=== PATIENT | male | born 1955 | race American Indian/Alaskan Native ===

== ENCOUNTER 2017-05-31 20:12 | Emergency (ER) | payer BC, MEDICAID ==
[2017-05-31] MEDS ORDERED: TYLENOL PO ONE (22:13)
[2017-06-01] MEDS ORDERED: NACL 0.9% 1000 ML 1,000 ML IV ONE (08:43)
[2017-06-01] MEDS ORDERED: DILAUDID IV ONE (08:47)
--- NOTE | 2017-06-01 08:48 | Emergency Department Report ---
Abscess Boil HPI - HPI Chief Complaint: Wound/Laceration Stated Complaint: BOIL Time Seen by Provider: 06/01/17 08:34 Duration: >1 Week Location: Perianal Severity: Moderate History: Yes Fever, Yes Pain, No Purulent Drainage, No Numbness, No Foreign Body , No Previous History, No Insect Bite HPI: Patient is a 61-year-old male with a history of PVCs and blood pressure which is controlled with medication presents to ED with left buttock abscess 1 week. Patient states that he thought it was a ball on his buttock. Patient states that it has gotten bigger and very painful. Patient states she's become uncomfortable to sit down and he is unable to sit down due to the pain and size of the well on his buttock. She states she's been taking his medications regularly. Home Medications: Home Medications Medication Instructions Recorded Confirmed Last Taken Insulin Glargine,Hum.rec.anlog 40 unit SQ HS 02/05/13 12/05/14 2 Days Ago [Lantus Solostar] ~12/03/14 40 Tacrolimus [Prograf] 4 mg PO Q12H 02/05/13 12/05/14 1 Day Ago ~12/04/14 4 predniSONE [Deltasone] 5 mg PO QDAY 02/05/13 12/05/14 Unknown AtorvaSTATin [Lipitor] 40 mg PO QDAY 12/05/14 12/05/14 2 Days Ago ~12/03/14 40 Insulin Aspart [NovoLOG Flexpen] See Protocol SQ ACHS 12/05/14 12/05/14 1 Day Ago ~12/04/14 Mycophenolate [Cellcept] 250 mg PO BID 12/05/14 12/05/14 1 Day Ago ~12/04/14 250 Previous Rx's Medication Instructions Recorded Last Taken Type amLODIPine [Norvasc] 10 mg PO DAILY #30 tab 02/05/13 1 Day Ago Rx ~12/04/14 10 HYDROcodone/APAP 5-325 [[place] 1 each PO Q6HR PRN #20 tablet 06/01/17 Unknown Rx 5-325 mg TAB] Ibuprofen [Motrin] 600 mg PO Q8H PRN #30 tablet 06/01/17 Unknown Rx Sulfamethoxazole/Trimethoprim 1 each PO BID #20 tablet 06/01/17 Unknown Rx [Bactrim DS TAB] Allergies/Adverse Reactions: Allergies Allergy/AdvReac Type Severity Reaction Status Date / Time No Known Allergies Allergy Verified 02/05/13 07:50 ED Review of Systems ROS: Stated complaint: BOIL Other details as noted in HPI Constitutional: denies: chills, fever Eyes: denies: eye pain, eye discharge, vision change ENT: denies: ear pain, throat pain Respiratory: denies: cough, shortness of breath, wheezing Cardiovascular: denies: chest pain, palpitations Endocrine: no symptoms reported Gastrointestinal: denies: abdominal pain, nausea, diarrhea Genitourinary: other (buttock boil, pain). denies: urgency, dysuria, frequency , hematuria, testicular pain, testicular mass Musculoskeletal: denies: back pain, joint swelling, arthralgia Skin: denies: rash, lesions Neurological: denies: headache, weakness, paresthesias Psychiatric: denies: anxiety, depression Hematological/Lymphatic: denies: easy bleeding, easy bruising ED Past Medical Hx - Past Medical History Hx Hypertension: Yes Hx Congestive Heart Failure: No Hx Diabetes: Yes Hx Asthma: Yes Hx COPD: No Hx HIV: No Additional medical history: liver transplant in 2010 - Surgical History Hx Open Heart Surgery: No Hx Cholecystectomy: No Hx Appendectomy: No Hx Breast Surgery: No Additional Surgical History: liver transplant 2010 - Social History Smoking Status: Never Smoker Substance Use Type: None - Medications Home Medications: Home Medications Medication Instructions Recorded Confirmed Last Taken Type Insulin Glargine,Hum.rec.anlog 40 unit SQ HS 02/05/13 12/05/14 2 Days Ago History [Lantus Solostar] ~12/03/14 40 Tacrolimus [Prograf] 4 mg PO Q12H 02/05/13 12/05/14 1 Day Ago History ~12/04/14 4 amLODIPine [Norvasc] 10 mg PO DAILY #30 tab 02/05/13 12/05/14 1 Day Ago Rx ~12/04/14 10 predniSONE [Deltasone] 5 mg PO QDAY 02/05/13 12/05/14 Unknown History AtorvaSTATin [Lipitor] 40 mg PO QDAY 12/05/14 12/05/14 2 Days Ago History ~12/03/14 40 Insulin Aspart [NovoLOG Flexpen] See Protocol SQ ACHS 12/05/14 12/05/14 1 Day Ago History ~12/04/14 Mycophenolate [Cellcept] 250 mg PO BID 12/05/14 12/05/14 1 Day Ago History ~12/04/14 250 HYDROcodone/APAP 5-325 [[place] 1 each PO Q6HR PRN #20 tablet 06/01/17 Unknown Rx 5-325 mg TAB] Ibuprofen [Motrin] 600 mg PO Q8H PRN #30 tablet 06/01/17 Unknown Rx Sulfamethoxazole/Trimethoprim 1 each PO BID #20 tablet 06/01/17 Unknown Rx [Bactrim DS TAB] ED Abscess Boil Physical Exam - Exam General: Vital signs noted. No distress. Alert and acting appropriately. I & D Note - I & D Note I & D Note: Patient positioned appropriately, 15cc lidocaine with epinephrine was used as a local anesthetic. #11 blade scalpal used for single incision. Additional local anesthetic injected into surrounding viable tissue prior to blunt dissection of loculated adhesions. Copius drainage of pus (culture obtained). Wound packed with iodoform gauze. Procedure tolerated without complications. Wound dressed with sterile 4x4 guaze and paper tape. Pt tolerated procedure well. ED Course Vital Signs 05/31/17 22:09 Temperature 100.4 F H Pulse Rate 64 Respiratory 16 Rate Blood Pressure 155/115 O2 Sat by Pulse 99 Oximetry Critical care attestation.: If time is entered above; I have spent that time in minutes in the direct care of this critically ill patient, excluding procedure time. ED Medical Decision Making - Lab Data Result diagrams: 06/01/17 Unknown 06/01/17 Unknown Laboratory Last Values WBC 14.8 K/mm3 (4.5-11.0) H 06/01/17 Unknown RBC 4.77 M/mm3 (3.65-5.03) 06/01/17 Unknown Hgb 13.2 gm/dl (11.8-15.2) 06/01/17 Unknown Hct 40.6 % (35.5-45.6) 06/01/17 Unknown MCV 85 fl (84-94) 06/01/17 Unknown MCH 28 pg (28-32) 06/01/17 Unknown MCHC 33 % (32-34) 06/01/17 Unknown RDW 13.0 % (13.2-15.2) L 06/01/17 Unknown Plt Count 295 K/mm3 (140-440) 06/01/17 Unknown Lymph % (Auto) 12.5 % (13.4-35.0) L 06/01/17 Unknown Jewell % (Auto) 11.4 % (0.0-7.3) H 06/01/17 Unknown Eos % (Auto) 0.1 % (0.0-4.3) 06/01/17 Unknown Baso % (Auto) 0.4 % (0.0-1.8) 06/01/17 Unknown Lymph # 1.8 K/mm3 (1.2-5.4) 06/01/17 Unknown Jewell # 1.7 K/mm3 (0.0-0.8) H 06/01/17 Unknown Eos # 0.0 K/mm3 (0.0-0.4) 06/01/17 Unknown Baso # 0.1 K/mm3 (0.0-0.1) 06/01/17 Unknown Seg Neutrophils % 75.6 % (40.0-70.0) H 06/01/17 Unknown Seg Neutrophils # 11.2 K/mm3 (1.8-7.7) H 06/01/17 Unknown Sodium 137 mmol/L (137-145) 06/01/17 Unknown Potassium 4.8 mmol/L (3.6-5.0) 06/01/17 Unknown Chloride 95.3 mmol/L (98-107) L 06/01/17 Unknown Carbon Dioxide 22 mmol/L (22-30) 06/01/17 Unknown Anion Gap 25 mmol/L 06/01/17 Unknown BUN 12 mg/dL (9-20) 06/01/17 Unknown Creatinine 0.8 mg/dL (0.8-1.5) 06/01/17 Unknown Estimated GFR > 60 ml/min 06/01/17 Unknown BUN/Creatinine Ratio 15 % 06/01/17 Unknown Glucose 222 mg/dL (75-100) H 06/01/17 Unknown POC Glucose 215 (70-105) H 06/01/17 09:20 Calcium 9.4 mg/dL (8.4-10.2) 06/01/17 Unknown Total Bilirubin 0.50 mg/dL (0.1-1.2) 06/01/17 Unknown AST 21 units/L (5-40) 06/01/17 Unknown ALT 18 units/L (7-56) 06/01/17 Unknown Alkaline Phosphatase 142 units/L (35-129) H 06/01/17 Unknown Total Protein 7.5 g/dL (6.3-8.2) 06/01/17 Unknown Albumin 3.5 g/dL (3.9-5) L 06/01/17 Unknown Albumin/Globulin Ratio 0.9 % 06/01/17 Unknown - Medical Decision Making 61-year-old male presents with left buttock abscess. ED course: CBC, CMP obtained. Patient had mild elevated white count. glucose was 215. pt was administered IV clindamycin,0.5 dilaudid divided for pain, normal saline 1 L Abscess was drained. See abscess I&D in no Patient tolerated procedure well. Dizziness is much more comfortable. I discussed the patient to return to to ED in 48 hours for packing removal and wound check. Discussed with the patient he will be going home on antibiotics and pain meds. He is to comply with those medications. Vital signs stabilized. he is in no acute or respiratory distress. He tolerated procedure well ED Disposition Clinical Impression: Lori-rectal abscess Disposition: - TO HOME OR SELFCARE Is pt being admited?: No Does the pt Need Aspirin: No Condition: Stable Instructions: Abscess Incision and Drainage (ED), Abscess (ED) Additional Instructions: Make sure to follow up with the primary care physician as discussed. Take all your medications as you've been prescribed. If you have any worsening symptoms or develop new symptoms please return to ED immediately. Return to ED in 2 days for packing removal and wound check Prescriptions: HYDROcodone/APAP 5-325 [[place] 5-325 mg TAB] 1 each PO Q6HR PRN #20 tablet PRN Reason: Pain Ibuprofen [Motrin] 600 mg PO Q8H PRN #30 tablet PRN Reason: Pain Sulfamethoxazole/Trimethoprim [Bactrim DS TAB] 1 each PO BID #20 tablet Referrals: PRIMARY CAREMD [Primary Care Provider] - 3-5 Days [facility] [Outside] - 3-5 Days [facility] [Outside] - 3-5 Days [facility] [Outside] - 3-5 Days DOMO BACK MD [Referring] - 3-5 Days Forms: Accompanied Note, Work/School Release Form(ED) Time of Disposition: 11:18
[2017-06-01] MEDS ORDERED: CLEOCIN IV ONE (08:49)
[2017-06-01 09:26] LABS: Basophils # (Auto) 0.1 K/mm3 (0.0-0.1); Basophils % (Auto) 0.4 % (0.0-1.8); Eosinophils % (Auto) 0.1 % (0.0-4.3); Hematocrit 40.6 % (35.5-45.6); Hemoglobin 13.2 gm/dl (11.8-15.2); Lymphocytes # (Auto) 1.8 K/mm3 (1.2-5.4); Lymphocytes % (Auto) 12.5 % (13.4-35.0); Mean Corpuscular HGB Conc 33 % (32-34); Mean Corpuscular Hemoglobin 28 pg (28-32); Mean Corpuscular Volume 85 fl (84-94); Monocytes # (Auto) 1.7 K/mm3 (0.0-0.8); Monocytes % (Auto) 11.4 % (0.0-7.3); Platelet Count 295 K/mm3 (140-440); Red Blood Count 4.77 M/mm3 (3.65-5.03)
[2017-06-01 09:29] VITALS: BP 148/100
[2017-06-01] MEDS ORDERED: XYLOCAINE 2% INFILTRATI ONE (09:42)
[2017-06-01] MEDS ORDERED: XYLOCAINE 1% 20 mL INFILTRATI NR (09:45)
[2017-06-01 09:51] LABS: Alanine Aminotransferase 18 units/L (7-56); Albumin 3.5 g/dL (3.9-5); BUN/Creatinine Ratio 15; Blood Urea Nitrogen 12 mg/dL (9-20); Calcium 9.4 mg/dL (8.4-10.2); Hemolysis Index 88
[2017-06-01] MEDS ORDERED: ROCEPHIN IM ONE ×2 (10:41→10:43)
== END 2017-06-01 11:33 | disposition home or self-care (01) ==
LOC: ED 20:12
DX: L02.31 Cutaneous abscess of buttock (principal); I10 Essential (primary) hypertension; E11.9 Type 2 diabetes mellitus without complications; J45.909 Unspecified asthma, uncomplicated; Z94.4 Liver transplant status
CPT/HCPCS: 10060; 36415; 80053; 82962; 85025; 87116; 96361; 96372; 96374; 96375; 99283; J0696; J1170; J7030; 87076; 87186

== ENCOUNTER 2017-06-03 16:17 | Emergency (ER) | payer BC, MEDICAID ==
[2017-06-03 16:54] VITALS: BP 143/95
== END 2017-06-03 17:00 | disposition left against medical advice (07) ==
LOC: ED 16:17
DX: Z53.21 Procedure and treatment not carried out due to patient leaving prior to being seen by health care provider (principal)